=== PATIENT | female | born 1955 | race Caucasian/White ===

== ENCOUNTER → 2018-11-26 | Outpatient (CLI) | payer BC ==
--- NOTE | 2018-11-26 16:31 | RAD ---
EXAM: Lumbar spine, 4 views. HISTORY: Pain. COMPARISON: None. FINDINGS: 4 views of the lumbar spine are obtained. There is grade 1 anterolisthesis of L5 on S1. There is degenerative endplate remodeling with disc space narrowing, vacuum phenomenon and facet arthropathy at this level. There is suspected bone demineralization. IMPRESSION: 1. Degenerative change at L5-S1. 2. No acute osseous finding. Electronically signed by: Rosalia Rios MD (11/26/2018 4:28 PM) [facility]
== END | disposition home or self-care (01) ==
LOC: PMG 16:03
PROVIDERS: ATTEND Registered Nurse
DX: M51.37 Other intervertebral disc degeneration, lumbosacral region (principal); M12.88 Other specific arthropathies, not elsewhere classified, other specified site; M48.07 Spinal stenosis, lumbosacral region
CPT/HCPCS: 72100